=== PATIENT | female | born 1990 | race Caucasian/White ===

== ENCOUNTER → 2017-02-26 | Outpatient (CLI) | payer OTHER ==
[~2017-02-26] MED LIST: DEPO PROVER150 MG/M1; NKHM; VICODIN 5/500 505 MG PO
== END | disposition home or self-care (01) ==
LOC: US 17:59
DX: O32.1XX0 Maternal care for breech presentation, not applicable or unspecified (principal); Z3A.20 20 weeks gestation of pregnancy